=== PATIENT | male | born 1940 | race Caucasian/White ===

== ENCOUNTER 2017-12-20 06:22 | Day surgery (SDC) | payer MEDICARE ==
[2017-12-20 06:58] VITALS: O2SAT 100
[2017-12-20] MEDS ORDERED: Lactated Ringer's 1,000 ML IV ONE ×2 (08:49)
[2017-12-20] MEDS ORDERED: Propofol 10 mg/ml Inj (20 ML) ONE (08:55)
[2017-12-20] MEDS ORDERED: Midazolam 2 MG/2 ML VIAL ONE (08:55)
[2017-12-20 10:59] VITALS: BP 121/79; PULSE 84; RESP 13; TEMP 97.2
== END 2017-12-20 10:55 | disposition home or self-care (01) ==
LOC: C.ENDO 06:22
PROVIDERS: ATTEND Internal Medicine Gastroenterology
DX: Z12.11 Encounter for screening for malignant neoplasm of colon (principal); D12.3 Benign neoplasm of transverse colon; K57.30 Diverticulosis of large intestine without perforation or abscess without bleeding; K64.1 Second degree hemorrhoids; E11.9 Type 2 diabetes mellitus without complications; I10 Essential (primary) hypertension; I25.10 Atherosclerotic heart disease of native coronary artery without angina pectoris; Z95.1 Presence of aortocoronary bypass graft; E78.5 Hyperlipidemia, unspecified
CPT/HCPCS: 45385; 82948; 88305; J2250; J2704; J7120

== ENCOUNTER 2018-08-22 07:25 | Day surgery (SDC) | payer MEDICARE ==
[2018-08-22] MEDS ORDERED: Propofol 10 mg/ml Inj (20 ML) ONE ×2 (10:02)
[2018-08-22] MEDS ORDERED: Lactated Ringer's 1,000 ML IV ONE (10:15)
--- NOTE | 2018-08-22 10:16 | CP.SDSHP ---
Same Day Surgery H & P - History Proposed Procedure: colonoscopy Pre-Op Diagnosis: family history of colon cancer - Previous Medical/Surgical History Cardiac: Hypertension, ASHD/CAD Endocrine/Metabolic: Diabetes - Allergies Allergies: Allergies No Known Allergies Allergy (Verified 11/28/16 10:01) - Physical Exam General Appearance: NAD Vital Signs: Vital Signs 08/22/18 07:52 Temperature 97.6 F Pulse Rate 86 Respiratory 20 Rate Blood Pressure 141/79 O2 Sat by Pulse 98 Oximetry Mental Status: Alert & Oriented x3 Neuro: WNL Heart: WNL Lungs: WNL GI: WNL - {Optional Preform as Required} Abdomen: WNL - Impression Pt. Evaluated Today:Candidate for Anesthesia & Procedure: Yes - Date & Time Date: 08/22/18 Time: 10:16 Short Stay Discharge - Short Stay Discharge Admitting Diagnosis/Reason for Visit: ENCOUNTER FOR SCREENING FOR MALIGNANT NEOPLASM OF Disposition: HOME/ ROUTINE
[2018-08-22 11:40] VITALS: TEMP 97.5; O2SAT 100
[2018-08-22 11:51] VITALS: BP 116/79; PULSE 70; RESP 14
== END 2018-08-22 11:50 | disposition home or self-care (01) ==
LOC: C.ENDO 07:25
PROVIDERS: ATTEND Internal Medicine Gastroenterology
DX: Z12.11 Encounter for screening for malignant neoplasm of colon (principal); K64.1 Second degree hemorrhoids; K57.30 Diverticulosis of large intestine without perforation or abscess without bleeding; Z80.0 Family history of malignant neoplasm of digestive organs; I10 Essential (primary) hypertension; I25.10 Atherosclerotic heart disease of native coronary artery without angina pectoris; E11.9 Type 2 diabetes mellitus without complications
CPT/HCPCS: 45378; 82948; J2704; J3010; J7120